=== PATIENT | male | born 1960 | race Caucasian/White ===

== ENCOUNTER 2017-04-28 17:31 | Emergency (ER) | payer SELFPAY ==
[~2017-04-28] VITALS: Ht 157.5 cm; Wt 69.0 kg
[2017-04-28] MEDS ORDERED: IPRATROPIUM BROMIDE (0.02%) 0.5MG/2.5ML NEB HHN STA (22:18)
[2017-04-28] MEDS ORDERED: METHYLPREDNISOLONE SOD SUCC 125 MG/2 ML VIAL IV STA (22:18)
[2017-04-28] MEDS ORDERED: ALBUTEROL (0.083%) 2.5MG/3ML NEB HHN STA (22:18)
[2017-04-28] MEDS ORDERED: KETOROLAC 30MG/ML VIAL IV STA (22:18)
[2017-04-28 23:24] LABS: BASOPHILS % 0.9 % (0.0-2.0); HEMOGLOBIN. 14.3 g/dL (14.0-18.0); LYMPHOCYTES % 36.6 % (20.0-50.0); MEAN CORPUSCULAR HEMOGLOBIN 30.6 pg (28.0-32.0); MEAN CORPUSCULAR VOLUME 87.6 fL (80.0-94.0); MEAN PLATELET VOLUME 7.9 fl (7.4-10.4); MONOCYTES % 10.3 % (2.0-8.0); NEUTROPHILS % 52.2 % (40.0-76.0); PLATELET 157 x1000/uL (130-400); RED BLOOD CELL COUNT 4.68 mill/uL (4.7-6.1); RED CELL DISTRIBUTION WIDTH 14.5 % (11.6-14.6)
[2017-04-28 23:42] LABS: CHLORIDE 99 mEq/L (98-107)
[2017-04-28] MEDS ORDERED: ALBUTEROL (0.083%) 2.5MG/3ML NEB HHN ONE (23:45)
[2017-04-29 01:19] VITALS: BP 125/69
== END 2017-04-29 01:53 | disposition home or self-care (01) ==
LOC: ER 17:49
DX: J44.1 Chronic obstructive pulmonary disease with (acute) exacerbation (principal); J06.9 Acute upper respiratory infection, unspecified; Z87.891 Personal history of nicotine dependence
CPT/HCPCS: 36415; 71045; 80053; 85025; 87804; 94640; 96374; 96375; 99285; J1885; J2930; J7611

== ENCOUNTER 2017-05-07 18:45 | Emergency (ER) | payer SELFPAY ==
[~2017-05-07] VITALS: Ht 162.6 cm; Wt 60.0 kg
[2017-05-07 19:08] VITALS: BP 134/81
[2017-05-07] MEDS ORDERED: IPRATROPIUM/ALBUTEROL 0.5-3(2.5)MG/3ML NEB HHN ONE (19:15)
== END 2017-05-07 22:05 | disposition home or self-care (01) ==
LOC: ER 22:04
DX: J44.1 Chronic obstructive pulmonary disease with (acute) exacerbation (principal); Z76.0 Encounter for issue of repeat prescription; Z72.0 Tobacco use
CPT/HCPCS: 94640; 99283; J7620